=== PATIENT | male | born 1945 | race Hispanic/Latino ===

== ENCOUNTER → 2017-07-25 | Outpatient (CLI) | payer OTHER ==
[~2017-07-25] MED LIST: ATOR40TA71 PO
== END | disposition home or self-care (01) ==
LOC: OIH 15:39
PROVIDERS: ATTEND Family Medicine
DX: M25.561 Pain in right knee (principal); M25.562 Pain in left knee
CPT/HCPCS: 73562

== ENCOUNTER 2017-09-10 07:45 | Emergency (ER) | payer OTHER ==
[2017-09-10 09:07] LABS: APPEARANCE,URINE Cloudy (CLEAR); BILIRUBIN,URINE Negative (NEGATIVE); COLOR,URINE Yellow (YELLOW); GLUCOSE, URINE (UA) Negative (NEGATIVE); KETONES,URINE Negative (NEGATIVE); LEUKOCYTE ESTERASE ,URINE Moderate (NEGATIVE); NITRATE,URINE Positive (NEGATIVE); OCCULT BLOOD,URINE Large (NEGATIVE); PROTEIN,URINE Negative (NEGATIVE); UROBILINOGEN,URINE 0.2 mg/dL (0.2-1.0)
[2017-09-10 09:35] LABS: BACTERIA,URINE Many /HPF (None Seen); RBC,URINE 26-50 /HPF (0-1); SQUAMOUS EPITHELIAL CELL,UR Rare /HPF (0-2); WBC,URINE 51-100 /HPF (0-1)
[2017-09-10] MEDS ORDERED: CEFTRIAXONE SODIUM 1 GM ONE (09:40)
== END 2017-09-10 10:39 | disposition home or self-care (01) ==
LOC: EDH 07:45
DX: N39.0 Urinary tract infection, site not specified (principal); R33.9 Retention of urine, unspecified; Z88.0 Allergy status to penicillin; Z98.890 Other specified postprocedural states
CPT/HCPCS: 51701; 81001; 87088; 87186; 96372; 99284; J0696

== ENCOUNTER 2018-03-23 18:47 | Emergency (ER) | payer MEDICARE, OTHER ==
[2018-03-23 19:18] LABS: BASOPHILS % (AUTO) 0.6 % (0.0-5.0); EOSINOPHILS % (AUTO) 0.5 % (0.0-8.0); HEMATOCRIT 42.8 % (42-54); LYMPHOCYTES % (AUTO) 7.4 % (21.0-51.0); MEAN CORPUSCULAR HEMOGLOBIN 28.4 pg (27.0-33.0); MEAN CORPUSCULAR HGB CONC 33.6 g/dL (32.0-36.0); MEAN CORPUSCULAR VOLUME 84.5 fL (79-99); MONOCYTES % (AUTO) 5.6 % (3.0-13.0); NEUTROPHILS % (AUTO) 85.9 % (40.0-77.0); NUCLEATED RED BLOOD CELLS 0.1 % (0.0-0.19); PLATELET COUNT (AUTO) 227 K/uL (130-400); RED BLOOD CELL COUNT(AUTO) 5.07 MIL/uL (4.50-6.20); RED CELL DISTRIBUTION WIDTH 14.7 % (11.0-15.5); WHITE BLOOD COUNT (AUTO) 20.7 K/uL (4.8-10.8)
[2018-03-23 19:24] LABS: CREATININE 1.1 mg/dL (0.5-1.5); INR 0.92 (0.85-1.15); PARTIAL THROMBOPLASTIN TIME 29.9 SEC (26.3-35.5); POTASSIUM 3.7 mmol/L (3.5-5.1); PROTHROMBIN TIME 9.7 SEC (9.6-11.6)
[2018-03-23 19:34] LABS: ALBUMIN 3.4 g/dL (3.5-5.0); BILIRUBIN,TOTAL 0.7 mg/dL (0.2-1.0); TOTAL PROTEIN, SERUM 7.8 g/dL (6.0-8.3)
[2018-03-23 19:57] LABS: B-TYPE NATRIURETIC PEPTIDE 89 pg/mL (0-100)
[2018-03-23 20:37] LABS: APPEARANCE,URINE Cloudy (CLEAR); BILIRUBIN,URINE Negative (NEGATIVE); COLOR,URINE Yellow (YELLOW); GLUCOSE, URINE (UA) Negative (NEGATIVE); KETONES,URINE Trace mg/dL (NEGATIVE); LEUKOCYTE ESTERASE ,URINE Large (NEGATIVE); NITRATE,URINE Positive (NEGATIVE); OCCULT BLOOD,URINE Small (NEGATIVE); PH,URINE 6.5 (5.0-8.0); PROTEIN,URINE POS 1+ (NEGATIVE)
[2018-03-23 20:43] LABS: BACTERIA,URINE Many /HPF (None Seen); RBC,URINE 0-1 /HPF (0-1); WBC,URINE TNTC /HPF (0-1)
[2018-03-23 20:44] LABS: AMPHET/METH SCREEN,URINE NEGATIVE (NEGATIVE); BARBITURATE SCREEN, URINE NEGATIVE (NEGATIVE); BENZODIAZEPINES SCREEN,URINE NEGATIVE (NEGATIVE); CANNABINOID SCREEN,URINE NEGATIVE (NEGATIVE); COCAINE SCREEN,URINE NEGATIVE (NEGATIVE); OPIATE SCREEN,URINE POSITIVE (NEGATIVE); PHENCYCLIDINE SCREEN,URINE NEGATIVE (NEGATIVE); SQUAMOUS EPITHELIAL CELL,UR 0-2 /HPF (0-2)
[2018-03-23] MEDS ORDERED: LEVOFLOXACIN 500 MG/D5W 100 ML 100 ML ONE (21:09)
[2018-03-23] MEDS ORDERED: SODIUM CHLORIDE 0.9% 1000ML 1,000 ML IV ONE (21:09)
== END 2018-03-23 22:56 | disposition home or self-care (01) ==
LOC: EDH 18:47
DX: R55 Syncope and collapse (principal); N39.0 Urinary tract infection, site not specified; R53.1 Weakness; Z88.0 Allergy status to penicillin; Z87.442 Personal history of urinary calculi; Z90.49 Acquired absence of other specified parts of digestive tract
CPT/HCPCS: 36415; 70450; 71045; 80053; 80305; 81001; 82550; 82948; 83874; 83880; 84484; 85025; 85610; 85730; 87077; 87088; 87186; 93005; 96365; 96366; 99291; J1956; J7030

== ENCOUNTER → 2018-03-27 | Outpatient (CLI) | payer OTHER, MEDICARE | END | disposition home or self-care (01) | LOC: RAH 08:36 | PROVIDERS: ATTEND Orthopaedic Surgery | DX: S83.232A Complex tear of medial meniscus, current injury, left knee, initial encounter (principal); M71.22 Synovial cyst of popliteal space [Baker], left knee; M25.462 Effusion, left knee; X58.XXXA Exposure to other specified factors, initial encounter; Y93.89 Activity, other specified; Y92.89 Other specified places as the place of occurrence of the external cause; Y99.8 Other external cause status | CPT/HCPCS: 73721 ==

== ENCOUNTER 2019-06-08 10:27 | Inpatient (IN) | payer OTHER, MEDICARE ==
[~2019-06-08] VITALS: Ht 167.6 cm; Wt 111.6 kg
[~2019-06-08 10:27] MED LIST changes: +ASPI-1012 PO; -ATOR40TA71 PO; +HYDR-4457 PO; +NITR100C4 PO; +TAMS-1 PO
[2019-06-08] MEDS ORDERED: ONDANSETRON HCL 4 MG/2 ML VIAL ONE (10:47)
[2019-06-08] MEDS ORDERED: SODIUM CHLORIDE 0.9% 1000ML 1,000 ML IV ONE ×2 (10:55→14:01)
[2019-06-08 10:59] LABS: BASOPHILS % (AUTO) 0.4 % (0.0-5.0); EOSINOPHILS % (AUTO) 0.2 % (0.0-8.0); LYMPHOCYTES % (AUTO) 3.5 % (21.0-51.0); MEAN CORPUSCULAR HEMOGLOBIN 26.9 pg (27.0-33.0); MEAN CORPUSCULAR HGB CONC 32.5 g/dL (32.0-36.0); MEAN CORPUSCULAR VOLUME 82.7 fL (79-99); MONOCYTES % (AUTO) 3.2 % (3.0-13.0); NEUTROPHILS % (AUTO) 92.3 % (40.0-77.0); PLATELET COUNT (AUTO) 206 K/uL (130-400); RED BLOOD CELL COUNT(AUTO) 5.32 MIL/uL (4.50-6.20); RED CELL DISTRIBUTION WIDTH 14.6 % (11.0-15.5); WHITE BLOOD COUNT (AUTO) 18.8 K/uL (4.8-10.8)
[2019-06-08] MEDS ORDERED: ACETAMINOPHEN EXTRA STRENGTH 500 MG TABLET ONE (11:01)
[2019-06-08 11:18] LABS: CARBON DIOXIDE 25 mmol/L (21-32); CHLORIDE 103 mmol/L (101-111); CREATININE 1.1 mg/dL (0.5-1.5); GLOMERULAR FILTR. RATE CALC 70 mL/min (>60); GLUCOSE,RANDOM 106 mg/dL (70-105); POTASSIUM 4.6 mmol/L (3.5-5.1); SODIUM SERUM 139 mmol/L (136-145); UREA NITROGEN, BLOOD 19 mg/dL (7-18)
[2019-06-08 11:29] LABS: ALANINE AMINOTRANSFERASE 21 U/L (12-78); ALBUMIN 3.4 g/dL (3.5-5.0); ASPARTATE AMINOTRANSFERASE 26 U/L (10-37); BILIRUBIN,TOTAL 0.7 mg/dL (0.2-1.0); CREATINE KINASE, TOTAL 181 U/L (21-232); MYOGLOBIN 77 ng/mL (10-92); TOTAL PROTEIN, SERUM 7.8 g/dL (6.0-8.3); TROPONIN I < 0.04 ng/mL (0.00-0.06)
[2019-06-08] MEDS: LEVOFLOXACIN 500 MG/D5W 100 ML 100 ML IV SCH (12:00)
[2019-06-08 12:09] LABS: APPEARANCE,URINE Clear (CLEAR); BILIRUBIN,URINE Negative (NEGATIVE); COLOR,URINE Yellow (YELLOW); GLUCOSE, URINE (UA) Negative (NEGATIVE); KETONES,URINE Negative (NEGATIVE); LEUKOCYTE ESTERASE ,URINE Large (NEGATIVE); NITRATE,URINE Positive (NEGATIVE); OCCULT BLOOD,URINE Trace (NEGATIVE); PROTEIN,URINE Negative (NEGATIVE); UROBILINOGEN,URINE 0.2 mg/dL (0.2-1.0)
[2019-06-08 12:22] LABS: INR 0.91 (0.85-1.15); PROTHROMBIN TIME 9.6 SEC (9.6-11.6)
[2019-06-08 12:37] LABS: BACTERIA,URINE Moderate /HPF (None Seen); RBC,URINE 0-1 /HPF (0-1)
[2019-06-08] MEDS ORDERED: LEVOFLOXACIN 500 MG/D5W 100 ML 100 ML ONE (12:40)
[2019-06-08] MEDS: SODIUM CHLORIDE 0.9% 1000ML 1,000 ML IV SCH ×2 (14:00→23:48)
[2019-06-08 14:40] VITALS: BP 161/75
[2019-06-08] MEDS ORDERED: NITROGLYCERIN 0.4 MG SL TAB SL PRN (15:15)
[2019-06-08] MEDS ORDERED: ACETAMINOPHEN 325 MG TAB PO PRN ×2 (15:15)
[2019-06-08] MEDS ORDERED: LACTULOSE 20 GM/30 ML UDCUP PO PRN (15:15)
[2019-06-08] MEDS ORDERED: ACETAMINOPHEN-CODEINE 300/30MG TAB PO PRN (15:15)
[2019-06-08] MEDS ORDERED: HYDRALAZINE HCL 20 MG/ML VIAL IV PRN (15:15)
[2019-06-08] MEDS ORDERED: GLUCAGON 1MG KIT 1 MG ML IM PRN (15:15)
[2019-06-08] MEDS ORDERED: POTASSIUM CHLORIDE 20 MEQ ERTAB PO PRN (15:15)
[2019-06-08] MEDS ORDERED: DiphenhydrAMINE HCL 50 MG/ML VIAL IV PRN (15:15)
[2019-06-08] MEDS ORDERED: ONDANSETRON HCL 4 MG/2 ML VIAL IV PRN (15:15)
[2019-06-08] MEDS ORDERED: POTASSIUM CHLORIDE 20MEQ/100ML 100 ML IV PRN (15:15)
[2019-06-08] MEDS ORDERED: POTASSIUM CHLORIDE 10% ELIXIR 20 MEQ/15 ML UDCUP PO PRN (15:15)
[2019-06-08] MEDS ORDERED: DEXTROSE 50%-WATER 50 ML DISP.SYRIN IV PRN (15:15)
[2019-06-08] MEDS ORDERED: DIPHENHYDRAMINE HCL 25 MG CAPSULE PO PRN (15:15)
[2019-06-08] MEDS ORDERED: LIDOCAINE HCL-MPF 1% 2ML VIAL IV PRN (15:15)
[2019-06-08] MEDS ORDERED: HYDROMORPHONE 1 MG/1 ML AMP IV PRN (15:15)
[2019-06-08 16:00] VITALS: BP 124/48
[2019-06-08] MEDS ORDERED: INSULIN HUMULIN R 100 UNIT/ML 3ML SQ SCH (16:30)
[2019-06-08] MEDS: FAMOTIDINE/PF 20 MG/2 ML VIAL IV SCH (20:07)
--- NOTE | 2019-06-08 20:07 | NUR ---
MEDS SHIFT ASSESSMENT DONE, PLEASE REFER TO CHART. DUE MEDS ADMINISTERED, TOLERATED WELL. KEPT RESTED AND COMFORTABLE IN BED. CALL LIGHT WITHIN REACH. WILL MONITOR PT. SPOUSE AT BEDSIDE IN ATTENDANCE TO NEEDS AT THIS TIME. Addendum: 06/08/19 at 2258 by JENNY DELVALLE RN RN Amended: Links added.
[2019-06-08 20:12] VITALS: BP 109/59
--- NOTE | 2019-06-08 22:30 | NUR ---
PAIN PT COMPLAINTS OF PAINS ON HIS RT ARM AND RT SHOULDER. MEDICATED WITH TYLENOL #3 1 TAB. WARP PACKS APPLIED TO RT SHOULDER. KEPT RESTED AND COMFORTABLE. CALL LIGHT WITHIN REACH. WILL RE-ASSESS PT.
[2019-06-09] VITALS (7 sets, daily range): BP systolic 99–129; BP diastolic 52–65
--- NOTE | 2019-06-09 02:00 | NUR ---
ROUNDS PT RESTING WELL, FAIRLY ASLEEP WITH RESPIRATIONS EVEN AND UNLABORED. NO DISTRESS NOTED. KEPT UNDISTURBED FOR NOW. WILL MONITOR PT. CALL LIGHT WITHIN REACH. SPOUSE ASLEEP AT BEDSIDE.
[2019-06-09] MEDS: SODIUM CHLORIDE 0.9% 1000ML 1,000 ML IV SCH ×3 (03:04→20:00)
--- NOTE | 2019-06-09 04:10 | NUR ---
ASSIST PT TRIED TO HAVE A BM IN THE RESTROOM BUT NO RESULTS. PT WAS FEELING DIZZY GOING BACK TO BED. ASSISTED TO SIT IN THE CHAIR. REQUESTED TO STAY IN THE CHAIR FOR NOW. NOTED TO HAVE SOB WITH EXERTION. PLACED BACK ON O2 AT 2LPM. PCP ON THE WAY TO MONITOR V/S. WILL MONITOR CLOSELY.
[2019-06-09 04:47] LABS: BASOPHILS % (AUTO) 0.3 % (0.0-5.0); EOSINOPHILS % (AUTO) 0.1 % (0.0-8.0); HEMATOCRIT 39.1 % (42-54); MEAN CORPUSCULAR HEMOGLOBIN 26.5 pg (27.0-33.0); MEAN CORPUSCULAR HGB CONC 31.5 g/dL (32.0-36.0); MEAN CORPUSCULAR VOLUME 84.1 fL (79-99); MONOCYTES % (AUTO) 5.9 % (3.0-13.0); NEUTROPHILS % (AUTO) 89.2 % (40.0-77.0); PLATELET COUNT (AUTO) 178 K/uL (130-400); RED BLOOD CELL COUNT(AUTO) 4.65 MIL/uL (4.50-6.20); RED CELL DISTRIBUTION WIDTH 14.7 % (11.0-15.5)
[2019-06-09 04:57] LABS: CREATININE 1.1 mg/dL (0.5-1.5); POTASSIUM 3.6 mmol/L (3.5-5.1)
--- NOTE | 2019-06-09 06:10 | NUR ---
ROUNDS PT ALREADY BACK IN BED, FAIRLY ASLEEP. NO DISTRESS NOTED. KEPT RESTED AND COMFORTABLE. FOR MORE CARE AND MANAGEMENT.
[2019-06-09] MEDS ORDERED: PNEUMOCOCCAL VACCINE POLYVALENT 0.5 ML/VIAL [PPV] IM SCH (09:00)
[2019-06-09] MEDS: FAMOTIDINE/PF 20 MG/2 ML VIAL IV SCH ×2 (09:06→20:42)
[2019-06-09] MEDS: TAMSULOSIN HCL 0.4 MG CAP.ER.24H PO SCH (09:06)
[2019-06-09] MEDS: ENOXAPARIN SODIUM 40 MG/0.4 ML SYRINGE SQ SCH (09:07)
--- NOTE | 2019-06-09 09:20 | NUR ---
ROCKET ENGINE COMPONENT MECHANIC WHITE AWARE OF WBC OF 22 STATES WILL ADD ANTIBIOTIC.
[2019-06-09] MEDS: LEVOFLOXACIN 500 MG/D5W 100 ML 100 ML IV SCH (12:51)
--- NOTE | 2019-06-09 16:46 | NUR ---
1540 had pt sign IM Letter,faxed to [phone] and placed in chart under consent tab
--- NOTE | 2019-06-09 17:07 | NUR ---
cm note met with patient and states resides at home with spouse and daughter, spouse assists as needed. pt independent with ambulation and adls. no provider, no services. has a walker, but does not ever use. pt drives. dc plan is back home , no dc needs. Addendum: 06/09/19 at 1709 by STERLING DUPONT CM Amended: Links added.
[2019-06-09] MEDS: SULFAMETHOX-TMP DS 800/160 TAB PO SCH (20:42)
--- NOTE | 2019-06-09 20:45 | NUR ---
MEDS SHIFT ASSESSMENT DONE, PLEASE REFER TO CHART. DUE MEDS ADMINISTERED, TOLERATED WELL. KEPT RESTED AND COMFORTABLE. CALL LIGHT WITHIN REACH. FAMILY AT BEDSIDE. WILL MONITOR PT. Addendum: 06/09/19 at 2344 by JENNY DELVALLE RN RN Amended: Links added.
--- NOTE | 2019-06-10 02:00 | NUR ---
ROUNDS PT RESTING WELL, FAIRLY ASLEEP WITH RESPIRATIONS EVEN AND UNLABORED. NO NOTED DISTRESS. KEPT UNDISTURBED FOR NOW WILL MONITOR PT.
[2019-06-10 03:26] VITALS: BP 130/79
[2019-06-10 04:40] LABS: BASOPHILS % (AUTO) 0.2 % (0.0-5.0); EOSINOPHILS % (AUTO) 0.2 % (0.0-8.0); HEMATOCRIT 37.8 % (42-54); LYMPHOCYTES % (AUTO) 4.9 % (21.0-51.0); MEAN CORPUSCULAR HEMOGLOBIN 26.8 pg (27.0-33.0); MEAN CORPUSCULAR VOLUME 83.8 fL (79-99); MONOCYTES % (AUTO) 5.4 % (3.0-13.0); NEUTROPHILS % (AUTO) 88.9 % (40.0-77.0); PLATELET COUNT (AUTO) 164 K/uL (130-400); RED BLOOD CELL COUNT(AUTO) 4.51 MIL/uL (4.50-6.20); RED CELL DISTRIBUTION WIDTH 14.6 % (11.0-15.5); WHITE BLOOD COUNT (AUTO) 12.1 K/uL (4.8-10.8)
[2019-06-10 05:11] LABS: POTASSIUM 3.8 mmol/L (3.5-5.1)
[2019-06-10] MEDS: SODIUM CHLORIDE 0.9% 1000ML 1,000 ML IV SCH ×2 (05:17→15:17)
[2019-06-10 08:00] VITALS: BP 111/63
[2019-06-10] MEDS: FAMOTIDINE/PF 20 MG/2 ML VIAL IV SCH (10:01)
[2019-06-10] MEDS: TAMSULOSIN HCL 0.4 MG CAP.ER.24H PO SCH (10:01)
[2019-06-10] MEDS: SULFAMETHOX-TMP DS 800/160 TAB PO SCH (10:02)
[2019-06-10] MEDS: ENOXAPARIN SODIUM 40 MG/0.4 ML SYRINGE SQ SCH (10:02)
[2019-06-10] MEDS: LEVOFLOXACIN 500 MG/D5W 100 ML 100 ML IV SCH (10:02)
[2019-06-10 11:00] VITALS: BP 122/65
[2019-06-10 16:00] VITALS: BP 118/76
[2019-06-10 19:11] VITALS: BP 130/68
--- NOTE | 2019-06-10 20:00 | NUR ---
ASSESS SHIFT ASSESSMENT DONE, PLEASE REFER TO CHART. PT AND FAMILY MADE AWARE OF D/C ORDERS. EXPLAINED THAT D/C MEDS ARE STILL TO BE CLARIFIED WITH MD. PT'S FAMILY CALLED BY PT'S FOR TRANSPORT. Addendum: 06/11/19 at 0114 by JENNY DELVALLE RN RN Amended: Links added.
--- NOTE | 2019-06-10 20:07 | NUR ---
CALL RESOURCE NURSE MADE AWARE OF D/C ORDERS FROM [facility]ODOL[facility] WOR[facility]Y WITHOUT ANY PRESCRIPTIONS FOR ANTIBIOTIC GIVEN. INFORMED OF URINE CX RESULTS WHICH AM SHIFT NURSE WAS ABLE TO RELAY TO ION EXCHANGE OPERATOR DURING THE PM PER REPORT. RESOURCE NURSE STATED TO CALL ION EXCHANGE OPERATOR AND CLARIFY MED ORDERS. SECURED CELL PHONE NUMBER OF ION EXCHANGE OPERATOR AND CALLED TWICE BUT VOICE MAIL IS FULL AND ION EXCHANGE OPERATOR IS NOT ANSWERING HER PHONE. PAGED ION EXCHANGE OPERATOR [employer] FOR THE NIGHT, MR SCHWARTZ, VIA ANSWERING SERVICE, AWAITING CALL BACK.
--- NOTE | 2019-06-10 20:15 | NUR ---
RESOURCE RESOURCE NURSE MADE AWARE THAT BUTTON TUFTER BECKY IS NOT ANSWERING HER PHONE AND BUTTON TUFTER LANA HAS NOT ANSWERED THE PAGE YET. RESOURCE NURSE INSTRUCTED OPEN CLAIMS REPRESENTATIVE TO CALL TERMINAL GAUGER SUPERVISOR DIRECTOR TO LET HER KNOW OS SITUATION. CHARITO STONE DIRECTOR CALLED AND MADE MULLINS OF BUTTON TUFTER SITUATION AT THIS TIME. STATED TO CALL DR VILLAFUERTE FOR PT ORDERS AND IF NO ANSWER TO GET RESOURCE NURSE TO ESCALATE SITUATION TO ADMINISTRATIVE SOLAR SALES MANAGER.
--- NOTE | 2019-06-10 20:35 | NUR ---
RE-PAGED TRIED TO [facility] MEDICAL LAB DIRECTOR SCHWARTZ AGAIN VIA ANSWERING SERVICE. MEDICAL LAB DIRECTOR CALLED BACK REFERRED PT SITUATION AND NEW ORDERS GIVEN. PT MADE AWARE OF D/C ORDERS. D/C PAPERS PREPARED AND CALLED IN NEW PRESCRIPTION TO PT'S PHARMACY IN [facility].
[2019-06-10] MEDS ORDERED: NITR100C4 PO ×2 (21:02→21:06)
--- NOTE | 2019-06-10 21:30 | NUR ---
D/C PT'S FAMILY IN TO TAKE PT HOME. D/C PIV WITH CATHETER INTACT. TELE MONITOR DISCONTINUED. DISCHARGE PAPERS AND D/C INSTRUCTIONS GIVEN TO PT AND FAMILY. PT AND PT'S SPOUSE VERBALIZES UNDERSTANDING. D/C PT IN STABLE CONDITION. PCP ASKED TO WHEELED PT DOWN.
== END 2019-06-10 21:35 | disposition home or self-care (01) | DRG 872 ==
LOC: EDH 10:27 → OBSVTOIN 13:00 → EDHIP 13:00 → 4DH 15:08
PROVIDERS: ADMIT Internal Medicine; ATTEND Internal Medicine
PROC: 3E0234Z Introduction of Serum, Toxoid and Vaccine into Muscle, Percutaneous Approach (ICD-10-PCS; principal; 2019-06-09)
DX: A41.9 Sepsis, unspecified organism (principal); N10 Acute pyelonephritis; E44.0 Moderate protein-calorie malnutrition; E66.9 Obesity, unspecified; E11.9 Type 2 diabetes mellitus without complications; E78.5 Hyperlipidemia, unspecified; I10 Essential (primary) hypertension; N28.1 Cyst of kidney, acquired; Z68.39 Body mass index [BMI] 39.0-39.9, adult; Z88.0 Allergy status to penicillin; Z87.440 Personal history of urinary (tract) infections; Z23 Encounter for immunization
CPT/HCPCS: 36415; 71045; 76770; 80048; 80053; 81001; 82550; 83605; 83874; 84145; 84484; 85025; 85610; 85730; 87040; 87077; 87088; 87186; 87804; 90732; 93005; 99291; G0378; J1650; J1956; J2405; J3490; J7030

== ENCOUNTER 2019-07-22 22:00 | Emergency (ER) | payer MEDICARE, OTHER ==
[~2019-07-22 22:00] MED LIST changes: -ASPI-1012 PO; -HYDR-4457 PO
[2019-07-22 23:12] LABS: BASOPHILS % (AUTO) 0.3 % (0.0-5.0); HEMATOCRIT 43.1 % (42-54); LYMPHOCYTES % (AUTO) 2.9 % (21.0-51.0); MEAN CORPUSCULAR HEMOGLOBIN 27.4 pg (27.0-33.0); MEAN CORPUSCULAR HGB CONC 32.9 g/dL (32.0-36.0); MONOCYTES % (AUTO) 6.4 % (3.0-13.0); NEUTROPHILS % (AUTO) 89.8 % (40.0-77.0); PLATELET COUNT (AUTO) 208 K/uL (130-400); RED BLOOD CELL COUNT(AUTO) 5.19 MIL/uL (4.50-6.20); RED CELL DISTRIBUTION WIDTH 14.6 % (11.0-15.5); WHITE BLOOD COUNT (AUTO) 19.8 K/uL (4.8-10.8)
[2019-07-22 23:19] LABS: CREATININE 1.1 mg/dL (0.5-1.5); POTASSIUM 3.5 mmol/L (3.5-5.1)
[2019-07-22 23:21] LABS: APPEARANCE,URINE Cloudy (CLEAR); BILIRUBIN,URINE Negative (NEGATIVE); COLOR,URINE Yellow (YELLOW); GLUCOSE, URINE (UA) Negative (NEGATIVE); KETONES,URINE Trace mg/dL (NEGATIVE); LEUKOCYTE ESTERASE ,URINE Large (NEGATIVE); NITRATE,URINE Positive (NEGATIVE); OCCULT BLOOD,URINE Trace (NEGATIVE); PH,URINE 7.5 (5.0-8.0); PROTEIN,URINE POS 1+ mg/dL (NEGATIVE)
[2019-07-22] MEDS ORDERED: LEVOFLOXACIN 750 MG/D5W 150 ML 150 ML ONE (23:44)
[2019-07-22 23:52] LABS: BACTERIA,URINE Moderate /HPF (None Seen); MUCUS,URINE Few LPF (None Seen); SQUAMOUS EPITHELIAL CELL,UR Few /HPF (0-2); WBC,URINE 26-50 /HPF (0-1)
== END 2019-07-23 01:37 | disposition home or self-care (01) ==
LOC: EDH 22:00
DX: N13.6 Pyonephrosis (principal); Z90.49 Acquired absence of other specified parts of digestive tract; Z88.0 Allergy status to penicillin
CPT/HCPCS: 36415; 74176; 80048; 81001; 83605; 85025; 87040; 87077; 87088; 87186; 96365; 96366; 99284; J1956

== ENCOUNTER 2019-08-01 15:18 | Emergency (ER) | payer OTHER ==
[2019-08-01] MEDS ORDERED: KETOROLAC TROMETHAMINE 30MG/ML ONE (15:57)
[2019-08-01 16:05] LABS: APPEARANCE,URINE Cloudy (CLEAR); BILIRUBIN,URINE Negative (NEGATIVE); COLOR,URINE Yellow (YELLOW); GLUCOSE, URINE (UA) Negative (NEGATIVE); KETONES,URINE Negative (NEGATIVE); LEUKOCYTE ESTERASE ,URINE Moderate (NEGATIVE); NITRATE,URINE Positive (NEGATIVE); OCCULT BLOOD,URINE Trace (NEGATIVE); PH,URINE 5.5 (5.0-8.0); PROTEIN,URINE Negative (NEGATIVE); UROBILINOGEN,URINE 0.2 mg/dL (0.2-1.0)
[2019-08-01 16:15] LABS: BASOPHILS % (AUTO) 0.4 % (0.0-5.0); EOSINOPHILS % (AUTO) 0.1 % (0.0-8.0); HEMATOCRIT 43.5 % (42-54); LYMPHOCYTES % (AUTO) 5.6 % (21.0-51.0); MEAN CORPUSCULAR HEMOGLOBIN 26.9 pg (27.0-33.0); MEAN CORPUSCULAR HGB CONC 32.4 g/dL (32.0-36.0); MEAN CORPUSCULAR VOLUME 82.9 fL (79-99); MONOCYTES % (AUTO) 4.9 % (3.0-13.0); NEUTROPHILS % (AUTO) 88.5 % (40.0-77.0); PLATELET COUNT (AUTO) 310 K/uL (130-400); RED BLOOD CELL COUNT(AUTO) 5.25 MIL/uL (4.50-6.20); RED CELL DISTRIBUTION WIDTH 14.2 % (11.0-15.5); WHITE BLOOD COUNT (AUTO) 18.7 K/uL (4.8-10.8)
[2019-08-01 16:20] LABS: BACTERIA,URINE Moderate /HPF (None Seen)
[2019-08-01 16:21] LABS: MUCUS,URINE Rare LPF (None Seen); SQUAMOUS EPITHELIAL CELL,UR Few /HPF (0-2)
[2019-08-01 16:29] LABS: CREATININE 1.1 mg/dL (0.5-1.5); POTASSIUM 4.1 mmol/L (3.5-5.1)
[2019-08-01 16:34] LABS: ALBUMIN 3.4 g/dL (3.5-5.0); BILIRUBIN,TOTAL 0.7 mg/dL (0.2-1.0); TOTAL PROTEIN, SERUM 8.4 g/dL (6.0-8.3)
[2019-08-01] MEDS ORDERED: LEVOFLOXACIN 500 MG TABLET ONE (17:19)
== END 2019-08-01 19:09 | disposition home or self-care (01) ==
LOC: EDH 15:18
DX: N39.0 Urinary tract infection, site not specified (principal); N45.2 Orchitis; Z88.0 Allergy status to penicillin; Z90.49 Acquired absence of other specified parts of digestive tract
CPT/HCPCS: 36415; 74176; 76870; 80053; 81001; 85025; 96374; 99285; J1885

== ENCOUNTER 2020-04-08 06:24 | Emergency (ER) | payer OTHER ==
[2020-04-08 07:14] LABS: BASOPHILS % (AUTO) 0.4 % (0.0-5.0); EOSINOPHILS % (AUTO) 0.2 % (0.0-8.0); HEMATOCRIT 43.6 % (42-54); LYMPHOCYTES % (AUTO) 5.2 % (21.0-51.0); MEAN CORPUSCULAR HEMOGLOBIN 27.6 pg (27.0-33.0); MEAN CORPUSCULAR VOLUME 83.5 fL (79-99); MONOCYTES % (AUTO) 3.6 % (3.0-13.0); NEUTROPHILS % (AUTO) 90.2 % (40.0-77.0); PLATELET COUNT (AUTO) 231 K/uL (130-400); RED BLOOD CELL COUNT(AUTO) 5.22 MIL/uL (4.50-6.20); RED CELL DISTRIBUTION WIDTH 14.3 % (11.0-15.5); WHITE BLOOD COUNT (AUTO) 13.2 K/uL (4.8-10.8)
[2020-04-08 07:30] LABS: ALBUMIN 3.6 g/dL (3.5-5.0); BILIRUBIN,TOTAL 0.7 mg/dL (0.2-1.0); CREATININE 1.1 mg/dL (0.5-1.5); POTASSIUM 4.3 mmol/L (3.5-5.1); TOTAL PROTEIN, SERUM 7.9 g/dL (6.0-8.3)
[2020-04-08] MEDS ORDERED: TAMSULOSIN HCL 0.4 MG CAP.ER.24H ONE (09:01)
[2020-04-08 09:20] LABS: APPEARANCE,URINE TURBID (CLEAR); BILIRUBIN,URINE NEGATIVE (NEGATIVE); COLOR,URINE YELLOW (YELLOW); GLUCOSE, URINE (UA) NEGATIVE (NEGATIVE); KETONES,URINE NEGATIVE (NEGATIVE); LEUKOCYTE ESTERASE ,URINE LARGE (NEGATIVE); NITRATE,URINE NEGATIVE (NEGATIVE); OCCULT BLOOD,URINE SMALL (NEGATIVE); PH,URINE 7.5 (5.0-8.0); PROTEIN,URINE 30 mg/dL (NEGATIVE); UROBILINOGEN,URINE 0.2 mg/dL (0.2-1.0)
[2020-04-08 09:38] LABS: BACTERIA,URINE Many /HPF (None Seen); SQUAMOUS EPITHELIAL CELL,UR Rare /HPF (0-2); WBC,URINE 51-100 /HPF (0-1)
[2020-04-08] MEDS ORDERED: LEVOFLOXACIN 500 MG TABLET ONE (10:00)
== END 2020-04-08 11:35 | disposition home or self-care (01) ==
LOC: EDH 06:24
DX: N39.0 Urinary tract infection, site not specified (principal); N40.0 Benign prostatic hyperplasia without lower urinary tract symptoms; E66.01 Morbid (severe) obesity due to excess calories; N40.1 Benign prostatic hyperplasia with lower urinary tract symptoms; Z88.0 Allergy status to penicillin; Z90.49 Acquired absence of other specified parts of digestive tract; Z79.899 Other long term (current) drug therapy
CPT/HCPCS: 36415; 80053; 81001; 83690; 85025; 87077; 87088; 87186

== ENCOUNTER 2020-10-28 16:20 | Emergency (ER) | payer OTHER ==
[~2020-10-28] VITALS: Ht 167.6 cm; Wt 108.9 kg
[2020-10-28 16:28] VITALS: BP 128/66
[2020-10-28] MEDS ORDERED: LIDOCAINE HCL 2% JELLY 5 ML ONE (16:39)
[2020-10-28 17:40] LABS: BASOPHILS % (AUTO) 0.7 % (0.0-5.0); EOSINOPHILS % (AUTO) 0.9 % (0.0-8.0); HEMATOCRIT 42.1 % (42-54); LYMPHOCYTES % (AUTO) 8.4 % (21.0-51.0); MEAN CORPUSCULAR HEMOGLOBIN 26.7 pg (27.0-33.0); MEAN CORPUSCULAR HGB CONC 31.8 g/dL (32.0-36.0); NEUTROPHILS % (AUTO) 83.7 % (40.0-77.0); PLATELET COUNT (AUTO) 306 K/uL (130-400); RED BLOOD CELL COUNT(AUTO) 5.01 MIL/uL (4.50-6.20); RED CELL DISTRIBUTION WIDTH 14.5 % (11.0-15.5)
[2020-10-28 17:49] LABS: POTASSIUM 3.9 mmol/L (3.5-5.1)
[2020-10-28 17:54] LABS: ALBUMIN 3.3 g/dL (3.5-5.0); BILIRUBIN,TOTAL 0.4 mg/dL (0.2-1.0); TOTAL PROTEIN, SERUM 7.9 g/dL (6.0-8.3)
[2020-10-28] MEDS ORDERED: TAMSULOSIN HCL 0.4 MG CAP.ER.24H ONE (18:56)
[2020-10-28] MEDS ORDERED: TAMS-1 PO (18:58)
[2020-10-28] MEDS ORDERED: TAMSULOSIN HCL 0.4 MG CAP.ER.24H PO SCH (19:00)
[2020-10-28 19:21] VITALS: BP 136/79
[2020-10-28 19:50] LABS: APPEARANCE,URINE Cloudy (CLEAR); BILIRUBIN,URINE Negative (NEGATIVE); COLOR,URINE Dark Yellow (YELLOW); GLUCOSE, URINE (UA) Negative (NEGATIVE); KETONES,URINE Negative (NEGATIVE); LEUKOCYTE ESTERASE ,URINE Large (NEGATIVE); NITRATE,URINE Positive (NEGATIVE); OCCULT BLOOD,URINE Small (NEGATIVE); PROTEIN,URINE Trace mg/dL (NEGATIVE)
[2020-10-28 20:12] LABS: BACTERIA,URINE Many /HPF (None Seen); RBC,URINE None Seen /HPF (0-1); SQUAMOUS EPITHELIAL CELL,UR 0-2 /HPF (0-2); WBC,URINE >100 /HPF (0-1)
== END 2020-10-28 19:39 | disposition home or self-care (01) ==
LOC: EDH 16:20
DX: N40.0 Benign prostatic hyperplasia without lower urinary tract symptoms (principal); N39.0 Urinary tract infection, site not specified; Z88.0 Allergy status to penicillin; Z79.899 Other long term (current) drug therapy
CPT/HCPCS: 36415; 80053; 81001; 85025; 87077; 87088; 87186

== ENCOUNTER 2020-11-01 14:44 | Observation (INO) | payer OTHER ==
[~2020-11-01] VITALS: Ht 172.7 cm; Wt 108.9 kg
[2020-11-01] VITALS (14 sets, daily range): BP systolic 98–134; BP diastolic 46–77
[2020-11-01 15:37] LABS: APPEARANCE,URINE CLOUDY (CLEAR); BILIRUBIN,URINE NEGATIVE (NEGATIVE); COLOR,URINE YELLOW (YELLOW); GLUCOSE, URINE (UA) NEGATIVE (NEGATIVE); KETONES,URINE NEGATIVE (NEGATIVE); LEUKOCYTE ESTERASE ,URINE LARGE (NEGATIVE); NITRATE,URINE POSITIVE (NEGATIVE); OCCULT BLOOD,URINE SMALL (NEGATIVE); PH,URINE 5.5 (5.0-8.0); PROTEIN,URINE TRACE mg/dL (NEGATIVE); UROBILINOGEN,URINE 0.2 mg/dL (0.2-1.0)
[2020-11-01 15:43] LABS: BACTERIA,URINE Moderate /HPF (None Seen); SQUAMOUS EPITHELIAL CELL,UR Few /HPF (0-2)
[2020-11-01 15:44] LABS: WBC,URINE 51-100 /HPF (0-1)
[2020-11-01 16:32] LABS: BASOPHILS % (AUTO) 0.6 % (0.0-5.0); HEMATOCRIT 42.7 % (42-54); MEAN CORPUSCULAR HEMOGLOBIN 27.5 pg (27.0-33.0); MEAN CORPUSCULAR HGB CONC 32.8 g/dL (32.0-36.0); MEAN CORPUSCULAR VOLUME 83.7 fL (79-99); MONOCYTES % (AUTO) 4.9 % (3.0-13.0); NEUTROPHILS % (AUTO) 83.2 % (40.0-77.0); PLATELET COUNT (AUTO) 285 K/uL (130-400); RED CELL DISTRIBUTION WIDTH 14.1 % (11.0-15.5); WHITE BLOOD COUNT (AUTO) 13.5 K/uL (4.8-10.8)
[2020-11-01 16:41] LABS: CREATININE 1.1 mg/dL (0.5-1.5)
[2020-11-01 16:48] LABS: ALBUMIN 3.5 g/dL (3.5-5.0); BILIRUBIN,TOTAL 0.4 mg/dL (0.2-1.0); CRP QUANTITATIVE 22.4 mg/L (0.00-9.0); TOTAL PROTEIN, SERUM 8.2 g/dL (6.0-8.3)
[2020-11-01] MEDS ORDERED: HYDROCODONE/ACETAMINOPHEN 10/325 MG TAB PO SCH (17:00)
[2020-11-01] MEDS ORDERED: SODIUM CHLORIDE 0.9% 100 ML ONE (17:13)
[2020-11-01] MEDS: CEFTRIAXONE SODIUM 1 GM IVP SCH ×2 (17:48→18:53)
[2020-11-01] MEDS ORDERED: HYDRALAZINE HCL 20 MG/ML VIAL IV PRN (18:15)
[2020-11-01] MEDS ORDERED: GUAIFENESIN-DM 200/20 MG 10 ML PO PRN (18:15)
[2020-11-01] MEDS ORDERED: LACTULOSE 20 GM/30 ML UDCUP PO PRN (18:15)
[2020-11-01] MEDS ORDERED: ACETAMINOPHEN 325 MG TAB PO PRN ×2 (18:15)
[2020-11-01] MEDS ORDERED: MORPHINE 2 MG SYG (2MG/1ML) IV PRN (18:15)
[2020-11-01] MEDS ORDERED: MAG HYDROX/AL HYDROX/SIMETH ES 30 ML SUSP UDCUP PO PRN (18:15)
[2020-11-01] MEDS ORDERED: ONDANSETRON HCL 4 MG/2 ML VIAL IV PRN (18:15)
[2020-11-01] MEDS ORDERED: PROPOFOL 10 MG/ML 20ML VIAL IV ONE ×2 (21:04→22:48)
[2020-11-01] MEDS ORDERED: DEXAMETHASONE SOD PHOSPHATE 10MG/ML 1ML VIAL ONE (21:04)
[2020-11-01] MEDS ORDERED: FENTANYL CITRATE PF 50 MCG/1 ML 2ML VIAL ONE (21:04)
[2020-11-01] MEDS ORDERED: SUCCINYLCHOLINE 200MG/10ML SYR ONE (21:04)
[2020-11-01] MEDS ORDERED: GLYCOPYRROLATE 1 MG/5 ML SYRINGE ONE (21:04)
[2020-11-01] MEDS ORDERED: ROCURONIUM 10MG/1ML SYR 10 MG/ML ML ONE (21:04)
[2020-11-01] MEDS ORDERED: NEOSTIGMINE 5MG/5ML SYR IV ONE (21:04)
[2020-11-01] MEDS ORDERED: MIDAZOLAM HCL 1 MG/ML 2ML VIAL ONE (21:04)
[2020-11-01] MEDS ORDERED: LIDOCAINE PF 100MG/5ML (2%) SYRINGE 5ML ONE (21:04)
[2020-11-01] MEDS ORDERED: ONDANSETRON HCL 4 MG/2 ML VIAL ONE (21:04)
[2020-11-01] MEDS ORDERED: SODIUM CHLORIDE 0.9% 1000ML 1,000 ML IV ONE (21:41)
[2020-11-01] MEDS ORDERED: EPHEDRINE SULFATE 50 MG/ML AMPULE ONE (22:35)
[2020-11-02] VITALS (12 sets, daily range): BP systolic 102–125; BP diastolic 45–72
[2020-11-02 05:16] LABS: BASOPHILS % (AUTO) 0.2 % (0.0-5.0); HEMATOCRIT 41.1 % (42-54); LYMPHOCYTES % (AUTO) 4.8 % (21.0-51.0); MEAN CORPUSCULAR HEMOGLOBIN 26.5 pg (27.0-33.0); MEAN CORPUSCULAR HGB CONC 31.6 g/dL (32.0-36.0); MEAN CORPUSCULAR VOLUME 83.9 fL (79-99); MONOCYTES % (AUTO) 0.7 % (3.0-13.0); NEUTROPHILS % (AUTO) 93.9 % (40.0-77.0); PLATELET COUNT (AUTO) 258 K/uL (130-400); WHITE BLOOD COUNT (AUTO) 9.2 K/uL (4.8-10.8)
[2020-11-02] MEDS ORDERED: TAMSULOSIN HCL 0.4 MG CAP.ER.24H PO SCH (09:00)
[2020-11-02] MEDS: CEFTRIAXONE SODIUM 1 GM IVP SCH (16:59)
== END 2020-11-02 18:00 | disposition home or self-care (01) ==
LOC: EDH 14:44 → EDHIP 18:02 → 3DH 20:34
PROVIDERS: ADMIT Internal Medicine Critical Care Medicine; ATTEND Internal Medicine Critical Care Medicine
DX: N35.912 Unspecified bulbous urethral stricture, male (principal); N40.1 Benign prostatic hyperplasia with lower urinary tract symptoms; R33.9 Retention of urine, unspecified; E78.2 Mixed hyperlipidemia; E66.9 Obesity, unspecified; Z87.442 Personal history of urinary calculi; Z90.49 Acquired absence of other specified parts of digestive tract; Z79.899 Other long term (current) drug therapy; Z68.36 Body mass index [BMI] 36.0-36.9, adult
CPT/HCPCS: 36415 ×2; 52276; 80053; 81001; 82948; 85025 ×2; 86140; 96361; 96374; 96376; 99284; A4354; A4358; C1758; C1769; G0378 ×22; J0330; J0696 ×2; J1100; J2001; J2250; J2405; J2704 ×2; J2710; J3010; J3490 ×2; J7030; J7120

== ENCOUNTER 2021-01-11 11:37 | Observation (INO) | payer OTHER ==
[~2021-01-11] VITALS: Ht 167.6 cm; Wt 110.7 kg
[~2021-01-11 11:37] MED LIST changes: -NITR100C4 PO
[2021-01-11 11:41] VITALS: BP 151/80
[2021-01-11 12:15] LABS: BASOPHILS % (AUTO) 0.3 % (0.0-5.0); HEMATOCRIT 44.3 % (42-54); LYMPHOCYTES % (AUTO) 4.4 % (21.0-51.0); MEAN CORPUSCULAR HEMOGLOBIN 27.3 pg (27.0-33.0); MEAN CORPUSCULAR HGB CONC 32.5 g/dL (32.0-36.0); MEAN CORPUSCULAR VOLUME 84.1 fL (79-99); NEUTROPHILS % (AUTO) 88.9 % (40.0-77.0); PLATELET COUNT (AUTO) 211 K/uL (130-400); RED BLOOD CELL COUNT(AUTO) 5.27 MIL/uL (4.50-6.20); RED CELL DISTRIBUTION WIDTH 14.7 % (11.0-15.5); WHITE BLOOD COUNT (AUTO) 20.3 K/uL (4.8-10.8)
[2021-01-11 12:23] LABS: CREATININE 1.1 mg/dL (0.5-1.5); POTASSIUM 3.8 mmol/L (3.5-5.1)
[2021-01-11 12:28] LABS: ALBUMIN 3.5 g/dL (3.5-5.0); BILIRUBIN,TOTAL 1.1 mg/dL (0.2-1.0)
[2021-01-11] MEDS ORDERED: ZOSYN 3.375GM+NS 50ML 50 ML IV STA (15:13)
[2021-01-11 15:21] LABS: APPEARANCE,URINE CLOUDY (CLEAR); BILIRUBIN,URINE NEGATIVE (NEGATIVE); COLOR,URINE YELLOW (YELLOW); GLUCOSE, URINE (UA) NEGATIVE (NEGATIVE); KETONES,URINE NEGATIVE (NEGATIVE); LEUKOCYTE ESTERASE ,URINE MODERATE (NEGATIVE); NITRATE,URINE POSITIVE (NEGATIVE); OCCULT BLOOD,URINE SMALL (NEGATIVE); PH,URINE 6.5 (5.0-8.0); PROTEIN,URINE TRACE mg/dL (NEGATIVE); UROBILINOGEN,URINE 0.2 mg/dL (0.2-1.0)
[2021-01-11] MEDS ORDERED: [UNRECOGNIZED DRUG - REMARK] MISC STA (15:23)
[2021-01-11] MEDS ORDERED: 0.9%NACL 1000ML 1,000 ML IV ONE (15:30)
[2021-01-11] MEDS ORDERED: ACETAMINOPHEN 500 MG TABLET PO ONE (15:30)
[2021-01-11 15:48] LABS: BACTERIA,URINE Moderate /HPF (None Seen)
[2021-01-11 15:49] LABS: SQUAMOUS EPITHELIAL CELL,UR Few /HPF (0-2)
[2021-01-11 16:18] LABS: INR 1.01 (0.85-1.15)
[2021-01-11 16:19] LABS: PARTIAL THROMBOPLASTIN TIME 28.6 SEC (26.3-35.5)
[2021-01-11 17:07] VITALS: BP 113/56
[2021-01-11] MEDS: LEVOFLOXACIN 500 MG/D5W 100 ML 100 ML IV SCH (17:46)
[2021-01-11] MEDS ORDERED: HYDRALAZINE 20MG/ML VIAL IV PRN (18:00)
[2021-01-11] MEDS ORDERED: DIPHENHYDRAMINE HCL 25 MG CAPSULE PO PRN (18:00)
[2021-01-11] MEDS ORDERED: LACTULOSE 20 GM/30 ML UDCUP PO PRN (18:00)
[2021-01-11] MEDS ORDERED: NITROGLYCERIN 0.4 MG SL TAB SL PRN (18:00)
[2021-01-11] MEDS ORDERED: GUAIFENESIN-DM 200/20 MG 10 ML PO PRN (18:00)
[2021-01-11] MEDS ORDERED: MAG/ALUM/SIMETH 30 ML UDCUP PO PRN (18:00)
[2021-01-11] MEDS ORDERED: MORPHINE 2 MG SYG IV PRN (18:00)
[2021-01-11] MEDS ORDERED: LEVOFLOXACIN 500 MG/D5W 100 ML 100 ML IV SCH (18:00)
[2021-01-11] MEDS ORDERED: ONDANSETRON 4MG INJ IV PRN (18:00)
[2021-01-11] MEDS ORDERED: HYDROCODONE/ACETAMINOPHEN 5/325 MG TAB PO PRN (18:00)
[2021-01-11] MEDS ORDERED: ACETAMINOPHEN 325 MG TAB PO PRN ×2 (18:00)
[2021-01-11] MEDS ORDERED: 0.9%NACL 1000ML 1,000 ML IV SCH (18:00)
[2021-01-11 19:07] VITALS: BP 122/50
[2021-01-11 19:50] VITALS: BP 151/71
[2021-01-11] MEDS: INSULIN HUMULIN R 100 UNIT/ML 3ML SQ SCH (20:49)
[2021-01-11] MEDS: FAMOTIDINE 20MG TAB PO SCH (20:52)
[2021-01-11] MEDS: BENZONATATE 100 MG CAPSULE PO SCH (20:52)
[2021-01-12] VITALS (7 sets, daily range): BP systolic 109–132; BP diastolic 38–66
[2021-01-12] MEDS: 0.9%NACL 1000ML 1,000 ML IV SCH ×2 (01:04→17:00)
[2021-01-12 06:39] LABS: BASOPHILS % (AUTO) 0.4 % (0.0-5.0); EOSINOPHILS % (AUTO) 0.2 % (0.0-8.0); HEMATOCRIT 41.4 % (42-54); LYMPHOCYTES % (AUTO) 6.2 % (21.0-51.0); MEAN CORPUSCULAR HEMOGLOBIN 26.9 pg (27.0-33.0); MEAN CORPUSCULAR HGB CONC 31.9 g/dL (32.0-36.0); MEAN CORPUSCULAR VOLUME 84.3 fL (79-99); MONOCYTES % (AUTO) 6.2 % (3.0-13.0); NEUTROPHILS % (AUTO) 86.6 % (40.0-77.0); PLATELET COUNT (AUTO) 198 K/uL (130-400); RED BLOOD CELL COUNT(AUTO) 4.91 MIL/uL (4.50-6.20); RED CELL DISTRIBUTION WIDTH 14.9 % (11.0-15.5)
[2021-01-12 06:55] LABS: POTASSIUM 3.6 mmol/L (3.5-5.1)
[2021-01-12] MEDS ORDERED: MEROPENEM 500 MG VIAL IVP SCH (07:00)
[2021-01-12] MEDS: INSULIN HUMULIN R 100 UNIT/ML 3ML SQ SCH ×4 (07:16→21:00)
[2021-01-12] MEDS ORDERED: ENOXAPARIN SODIUM 40 MG/0.4 ML SYRINGE SQ SCH (09:00)
[2021-01-12] MEDS ORDERED: TAMSULOSIN HCL 0.4 MG CAP.ER.24H PO SCH (09:00)
[2021-01-12] MEDS: BENZONATATE 100 MG CAPSULE PO SCH ×3 (09:12→21:19)
[2021-01-12] MEDS: FAMOTIDINE 20MG TAB PO SCH ×2 (09:12→21:19)
[2021-01-12] MEDS: NITROFURANTOIN MONOHYD/M-CRYST 100 MG CAPSULE PO SCH ×2 (09:19→21:19)
[2021-01-12] MEDS ORDERED: ACETAMINOPHEN 650 MG SUPPOSITORY RC PRN (15:30)
[2021-01-12] MEDS ORDERED: ACETAMINOPHEN 325 MG TAB PO PRN (15:30)
[2021-01-12 16:06] LABS: HEMOGLOBIN A1C 6.5 % (4.0-6.0)
[2021-01-12] MEDS: LEVOFLOXACIN 500 MG/D5W 100 ML 100 ML IV SCH (17:37)
[2021-01-13 02:22] VITALS: BP 120/40
[2021-01-13 06:08] LABS: HEMATOCRIT 41.5 % (42-54); MEAN CORPUSCULAR VOLUME 84.2 fL (79-99); RED BLOOD CELL COUNT(AUTO) 4.93 MIL/uL (4.50-6.20); RED CELL DISTRIBUTION WIDTH 14.6 % (11.0-15.5); WHITE BLOOD COUNT (AUTO) 9.8 K/uL (4.8-10.8)
[2021-01-13 06:14] LABS: POTASSIUM 3.8 mmol/L (3.5-5.1)
[2021-01-13] MEDS: 0.9%NACL 1000ML 1,000 ML IV SCH (07:20)
[2021-01-13] MEDS: INSULIN HUMULIN R 100 UNIT/ML 3ML SQ SCH (07:30)
[2021-01-13 07:59] VITALS: BP 118/67
[2021-01-13] MEDS ORDERED: SULF1TAB42 PO (08:21)
[2021-01-13 09:50] VITALS: BP 108/57
== END 2021-01-13 09:40 | disposition home or self-care (01) ==
LOC: EDH 11:37 → EDHIP 17:53
PROVIDERS: ADMIT Internal Medicine; ATTEND Internal Medicine
DX: A41.9 Sepsis, unspecified organism (principal); Z20.822 Contact with and (suspected) exposure to COVID-19; N39.0 Urinary tract infection, site not specified; N40.0 Benign prostatic hyperplasia without lower urinary tract symptoms; E66.9 Obesity, unspecified; I10 Essential (primary) hypertension; D72.829 Elevated white blood cell count, unspecified; E78.00 Pure hypercholesterolemia, unspecified; R73.9 Hyperglycemia, unspecified; E78.5 Hyperlipidemia, unspecified; Z79.899 Other long term (current) drug therapy; Z98.890 Other specified postprocedural states; Z16.12 Extended spectrum beta lactamase (ESBL) resistance; Z87.440 Personal history of urinary (tract) infections; Z88.0 Allergy status to penicillin; Z68.39 Body mass index [BMI] 39.0-39.9, adult
CPT/HCPCS: 36415; 74176; 80048; 80053; 81001; 82550; 82948; 83036; 83605; 85025; 85027; 85610; 85730; 87040; 87077; 87088; 87186; 87635; 87804; 87880; 96361; 96365; 96366; 96372; C9803; G0378; J1650; J1956; J7030

== ENCOUNTER 2021-02-25 03:25 | Emergency (ER) | payer OTHER ==
[~2021-02-25] VITALS: Ht 170.2 cm; Wt 110.7 kg
[~2021-02-25 03:25] MED LIST changes: +SULF1TAB42 PO
[2021-02-25] MEDS ORDERED: ONDANSETRON 4MG INJ IVP ONE (04:00)
[2021-02-25] MEDS ORDERED: PANTOPRAZOLE 40 MG/VIAL IVP ONE (04:00)
[2021-02-25] MEDS ORDERED: 0.9%NACL 1000ML 1,000 ML IV ONE (04:00)
[2021-02-25] MEDS ORDERED: FAMOTIDINE 20MG VIAL IV ONE (04:00)
[2021-02-25] MEDS ORDERED: METOCLOPRAMIDE 10 MG/2 ML VIAL IVP ONE (04:00)
[2021-02-25 04:08] LABS: BASOPHILS % (AUTO) 0.2 % (0.0-5.0); EOSINOPHILS % (AUTO) 0.1 % (0.0-8.0); HEMATOCRIT 43.1 % (42-54); LYMPHOCYTES % (AUTO) 3.4 % (21.0-51.0); MEAN CORPUSCULAR HEMOGLOBIN 27.2 pg (27.0-33.0); MEAN CORPUSCULAR HGB CONC 32.5 g/dL (32.0-36.0); MEAN CORPUSCULAR VOLUME 83.7 fL (79-99); MONOCYTES % (AUTO) 3.9 % (3.0-13.0); PLATELET COUNT (AUTO) 210 K/uL (130-400); RED BLOOD CELL COUNT(AUTO) 5.15 MIL/uL (4.50-6.20); RED CELL DISTRIBUTION WIDTH 14.7 % (11.0-15.5); WHITE BLOOD COUNT (AUTO) 16.2 K/uL (4.8-10.8)
[2021-02-25 04:19] LABS: ALBUMIN 3.8 g/dL (3.5-5.0); BILIRUBIN,TOTAL 0.7 mg/dL (0.2-1.0); POTASSIUM 3.7 mmol/L (3.5-5.1); TOTAL PROTEIN, SERUM 7.8 g/dL (6.0-8.3)
[2021-02-25] MEDS ORDERED: IOHEXOL 350 MG/ML 100ML INFUS..BTL IV ONE (04:48)
[2021-02-25 05:27] LABS: APPEARANCE,URINE Cloudy (CLEAR); BILIRUBIN,URINE Negative (NEGATIVE); COLOR,URINE Yellow (YELLOW); GLUCOSE, URINE (UA) Negative (NEGATIVE); KETONES,URINE Negative (NEGATIVE); LEUKOCYTE ESTERASE ,URINE Large (NEGATIVE); NITRATE,URINE Positive (NEGATIVE); OCCULT BLOOD,URINE Small (NEGATIVE); PROTEIN,URINE Negative (NEGATIVE)
[2021-02-25 06:08] LABS: BACTERIA,URINE Moderate /HPF (None Seen); RBC,URINE 0-1 /HPF (0-1); SQUAMOUS EPITHELIAL CELL,UR Rare /HPF (0-2)
[2021-02-25] MEDS ORDERED: CEFTRIAXONE 2GM VIAL IVP SCH (06:30)
[2021-02-25] MEDS ORDERED: CEFTRIAXONE 1G VIAL ONE ×2 (06:33→06:42)
[2021-02-25 06:39] VITALS: BP 111/61
[2021-02-25] MEDS ORDERED: CEPH500B PO (06:59)
[2021-02-25] MEDS ORDERED: ONDA4TAB10 PO (06:59)
== END 2021-02-25 07:29 | disposition home or self-care (01) ==
LOC: EDH 03:25
DX: N39.0 Urinary tract infection, site not specified (principal); E86.9 Volume depletion, unspecified; R11.2 Nausea with vomiting, unspecified; Z20.822 Contact with and (suspected) exposure to COVID-19; E78.00 Pure hypercholesterolemia, unspecified; I10 Essential (primary) hypertension; J44.9 Chronic obstructive pulmonary disease, unspecified; Z79.899 Other long term (current) drug therapy; Z88.0 Allergy status to penicillin
CPT/HCPCS: 36415; 71045; 74177; 80053; 81001; 83605; 83690; 84484; 85025; 87040 ×2; 87077; 87088; 87186; 87635; 87804 ×2; 93005; 96374; 96375; 99285; C9113; C9803; J0696 ×2; J2405; J2765; J3490; J7030; Q9967

== ENCOUNTER 2021-05-03 03:10 | Observation (INO) | payer OTHER ==
[~2021-05-03] VITALS: Ht 167.6 cm; Wt 111.9 kg
[~2021-05-03 03:10] MED LIST changes: +CEPH500B PO; +ONDA4TAB10 PO
[2021-05-03] MEDS ORDERED: CEFTRIAXONE 1G VIAL 2 GM in 0.9%NACL 100ML 100 ML IV ONE (03:30)
[2021-05-03] MEDS ORDERED: ACETAMINOPHEN 500 MG TABLET PO ONE (03:30)
[2021-05-03] MEDS ORDERED: 0.9%NACL 1000ML 1,000 ML IV ONE (03:30)
[2021-05-03 03:40] LABS: APPEARANCE,URINE HAZY (CLEAR); BILIRUBIN,URINE Negative (NEGATIVE); COLOR,URINE Yellow (YELLOW); GLUCOSE, URINE (UA) Negative (NEGATIVE); KETONES,URINE Negative (NEGATIVE); LEUKOCYTE ESTERASE ,URINE Large (NEGATIVE); NITRATE,URINE Positive (NEGATIVE); OCCULT BLOOD,URINE Nonhemolyzed Trace (NEGATIVE); PROTEIN,URINE Negative (NEGATIVE)
[2021-05-03] MEDS ORDERED: MEROPENEM 1 GM VIAL ONE (03:46)
[2021-05-03 03:57] LABS: BASOPHILS % (AUTO) 0.4 % (0.0-5.0); EOSINOPHILS % (AUTO) 0.2 % (0.0-8.0); HEMATOCRIT 42.4 % (42-54); LYMPHOCYTES % (AUTO) 3.5 % (21.0-51.0); MEAN CORPUSCULAR HEMOGLOBIN 27.2 pg (27.0-33.0); MEAN CORPUSCULAR HGB CONC 32.1 g/dL (32.0-36.0); MEAN CORPUSCULAR VOLUME 84.8 fL (79-99); MONOCYTES % (AUTO) 4.6 % (3.0-13.0); NEUTROPHILS % (AUTO) 90.9 % (40.0-77.0); PLATELET COUNT (AUTO) 217 K/uL (130-400); RED CELL DISTRIBUTION WIDTH 14.6 % (11.0-15.5); WHITE BLOOD COUNT (AUTO) 18.9 K/uL (4.8-10.8)
[2021-05-03] MEDS ORDERED: MEROPENEM 1 GM VIAL IVP SCH (04:00)
[2021-05-03 04:03] LABS: CREATININE 1.2 mg/dL (0.5-1.5); POTASSIUM 3.7 mmol/L (3.5-5.1)
[2021-05-03 04:04] LABS: BACTERIA,URINE Moderate /HPF (None Seen); SQUAMOUS EPITHELIAL CELL,UR 0-2 /HPF (0-2); WBC,URINE 51-100 /HPF (0-1)
[2021-05-03 04:08] LABS: ALBUMIN 3.6 g/dL (3.5-5.0); BILIRUBIN,TOTAL 0.6 mg/dL (0.2-1.0); TOTAL PROTEIN, SERUM 7.3 g/dL (6.0-8.3)
[2021-05-03] MEDS ORDERED: LACTULOSE 20 GM/30 ML UDCUP PO PRN (04:30)
[2021-05-03] MEDS ORDERED: ACETAMINOPHEN 325 MG TAB PO PRN ×2 (04:30)
[2021-05-03] MEDS ORDERED: ZOLPIDEM TARTRATE 5 MG TAB PO PRN (04:30)
[2021-05-03] MEDS ORDERED: MAG/ALUM/SIMETH 30 ML UDCUP PO PRN (04:30)
[2021-05-03] MEDS ORDERED: GUAIFENESIN-DM 200/20 MG 10 ML PO PRN (04:30)
[2021-05-03] MEDS ORDERED: NITROGLYCERIN 0.4 MG SL TAB SL PRN (04:30)
[2021-05-03] MEDS: LACTATED RINGERS 1000ML 1,000 ML IV SCH ×2 (04:30→17:40)
[2021-05-03] MEDS ORDERED: ONDANSETRON 4MG INJ IV PRN (04:30)
[2021-05-03] MEDS: MEROPENEM 1 GM VIAL IVP SCH ×2 (04:51→17:41)
[2021-05-03] MEDS: FAMOTIDINE 20MG VIAL IV SCH (08:55)
[2021-05-03] MEDS: ENOXAPARIN SODIUM 40 MG/0.4 ML SYRINGE SQ SCH (08:55)
[2021-05-03] MEDS: TRAMADOL HCL 50 MG TABLET PO PRN (10:00)
[2021-05-04] MEDS: LACTATED RINGERS 1000ML 1,000 ML IV SCH ×2 (00:30→10:30)
[2021-05-04] MEDS: MEROPENEM 1 GM VIAL IVP SCH ×3 (06:10→22:35)
[2021-05-04 07:18] LABS: HEMATOCRIT 41.3 % (42-54); MEAN CORPUSCULAR HEMOGLOBIN 27.3 pg (27.0-33.0); MEAN CORPUSCULAR HGB CONC 32.4 g/dL (32.0-36.0); MEAN CORPUSCULAR VOLUME 84.1 fL (79-99); RED BLOOD CELL COUNT(AUTO) 4.91 MIL/uL (4.50-6.20); RED CELL DISTRIBUTION WIDTH 14.7 % (11.0-15.5); WHITE BLOOD COUNT (AUTO) 11.8 K/uL (4.8-10.8)
[2021-05-04 07:29] LABS: CREATININE 0.9 mg/dL (0.5-1.5); POTASSIUM 3.9 mmol/L (3.5-5.1)
[2021-05-04] MEDS: FAMOTIDINE 20MG VIAL IV SCH (09:12)
[2021-05-04] MEDS: ENOXAPARIN SODIUM 40 MG/0.4 ML SYRINGE SQ SCH (09:13)
[2021-05-04 09:50] VITALS: BP 130/73
[2021-05-04 11:52] VITALS: BP 114/61
[2021-05-04] MEDS: TRAMADOL HCL 50 MG TABLET PO PRN (15:12)
[2021-05-04 16:00] VITALS: BP 127/83
[2021-05-04 19:45] VITALS: BP 92/57
[2021-05-04 23:20] VITALS: BP 104/62
[2021-05-05 03:36] VITALS: BP 113/58
[2021-05-05 04:18] LABS: HEMATOCRIT 42.4 % (42-54); MEAN CORPUSCULAR HEMOGLOBIN 27.3 pg (27.0-33.0); MEAN CORPUSCULAR HGB CONC 32.1 g/dL (32.0-36.0); RED BLOOD CELL COUNT(AUTO) 4.99 MIL/uL (4.50-6.20); RED CELL DISTRIBUTION WIDTH 14.6 % (11.0-15.5); WHITE BLOOD COUNT (AUTO) 7.3 K/uL (4.8-10.8)
[2021-05-05 04:27] LABS: POTASSIUM 3.8 mmol/L (3.5-5.1)
[2021-05-05] MEDS: MEROPENEM 1 GM VIAL IVP SCH (06:00)
[2021-05-05] MEDS ORDERED: SULF1TAB42 PO (07:52)
[2021-05-05 08:00] VITALS: BP 112/67
[2021-05-05] MEDS: FAMOTIDINE 20MG VIAL IV SCH (08:55)
[2021-05-05] MEDS ORDERED: TAMSULOSIN HCL 0.4 MG CAP.ER.24H PO SCH (09:00)
== END 2021-05-05 11:10 | disposition home or self-care (01) ==
LOC: EDH 03:10 → EDHIP 04:21 → 3AH 05-04 10:02
PROVIDERS: ADMIT Internal Medicine; ATTEND Internal Medicine
DX: A41.9 Sepsis, unspecified organism (principal); Z20.822 Contact with and (suspected) exposure to COVID-19; N39.0 Urinary tract infection, site not specified; E87.2 Acidosis; E66.9 Obesity, unspecified; N40.0 Benign prostatic hyperplasia without lower urinary tract symptoms; E78.5 Hyperlipidemia, unspecified; N41.9 Inflammatory disease of prostate, unspecified; E78.00 Pure hypercholesterolemia, unspecified; E66.01 Morbid (severe) obesity due to excess calories; A41.50 Gram-negative sepsis, unspecified; K42.9 Umbilical hernia without obstruction or gangrene; K57.90 Diverticulosis of intestine, part unspecified, without perforation or abscess without bleeding; M47.815 Spondylosis without myelopathy or radiculopathy, thoracolumbar region; N20.0 Calculus of kidney; R11.2 Nausea with vomiting, unspecified; N28.1 Cyst of kidney, acquired; Z87.442 Personal history of urinary calculi; Z79.899 Other long term (current) drug therapy; Z87.440 Personal history of urinary (tract) infections; Z88.0 Allergy status to penicillin; Z98.890 Other specified postprocedural states; Z68.39 Body mass index [BMI] 39.0-39.9, adult
CPT/HCPCS: 36415 ×3; 74176; 80048 ×2; 80053; 81001; 82948; 83605 ×2; 84145; 84484; 85025; 85027 ×2; 87040 ×2; 87077; 87088; 87186; 87635; 96361 ×2; 96372 ×2; 96374; 96375; 96376 ×3; 99284; C9803; G0378 ×54; J1650 ×2; J2185 ×6; J3490 ×3; J7030; J7120 ×3

== ENCOUNTER 2021-05-21 03:09 | Inpatient (IN) | payer MEDICARE, OTHER ==
[~2021-05-21] VITALS: Ht 167.6 cm; Wt 104.4 kg
[~2021-05-21 03:09] MED LIST changes: -CEPH500B PO; -ONDA4TAB10 PO
[2021-05-21 04:11] LABS: APPEARANCE,URINE Cloudy (CLEAR); BILIRUBIN,URINE Negative (NEGATIVE); COLOR,URINE Yellow (YELLOW); GLUCOSE, URINE (UA) Negative (NEGATIVE); KETONES,URINE Negative (NEGATIVE); LEUKOCYTE ESTERASE ,URINE Large (NEGATIVE); NITRATE,URINE Positive (NEGATIVE); OCCULT BLOOD,URINE Small (NEGATIVE); PH,URINE 5.5 (5.0-8.0); PROTEIN,URINE Negative (NEGATIVE)
[2021-05-21 05:17] LABS: EOSINOPHILS % (AUTO) 2.2 % (0.0-8.0); HEMATOCRIT 39.5 % (42-54); LYMPHOCYTES % (AUTO) 10.9 % (21.0-51.0); MEAN CORPUSCULAR HGB CONC 32.2 g/dL (32.0-36.0); MEAN CORPUSCULAR VOLUME 83.9 fL (79-99); MONOCYTES % (AUTO) 6.3 % (3.0-13.0); NEUTROPHILS % (AUTO) 79.3 % (40.0-77.0); PLATELET COUNT (AUTO) 241 K/uL (130-400); RED BLOOD CELL COUNT(AUTO) 4.71 MIL/uL (4.50-6.20); RED CELL DISTRIBUTION WIDTH 14.6 % (11.0-15.5); WHITE BLOOD COUNT (AUTO) 7.9 K/uL (4.8-10.8)
[2021-05-21 05:18] LABS: BACTERIA,URINE Moderate /HPF (None Seen); RBC,URINE 0-1 /HPF (0-1)
[2021-05-21 05:19] LABS: SQUAMOUS EPITHELIAL CELL,UR Few /HPF (0-2)
[2021-05-21 05:26] LABS: CREATININE 1.1 mg/dL (0.5-1.5); POTASSIUM 3.8 mmol/L (3.5-5.1)
[2021-05-21] MEDS ORDERED: LACTULOSE 20 GM/30 ML UDCUP PO PRN (06:00)
[2021-05-21] MEDS ORDERED: ALBUTEROL 0.083% 2.5 MG/3 ML INH IH PRN (06:00)
[2021-05-21] MEDS ORDERED: CEFTRIAXONE 1G VIAL IVP ONE (06:00)
[2021-05-21] MEDS ORDERED: LEVOFLOXACIN 500 MG/D5W 100 ML 100 ML ONE (06:14)
[2021-05-21] MEDS ORDERED: ONDANSETRON 4MG INJ IVP PRN (06:30)
[2021-05-21] MEDS: INSULIN HUMULIN R 100 UNIT/ML 3ML SQ SCH ×4 (07:30→21:00)
[2021-05-21] MEDS: PANTOPRAZOLE 40 MG TAB DR PO SCH (08:40)
[2021-05-21] MEDS ORDERED: ATOR20TA65 PO (11:03)
[2021-05-21] MEDS: ACETAMINOPHEN 325 MG TAB PO PRN (11:48)
[2021-05-21] MEDS ORDERED: TAMSULOSIN HCL 0.4 MG CAP.ER.24H PO SCH ×2 (12:00→23:00)
[2021-05-21] MEDS: MEROPENEM 1 GM VIAL IVP SCH ×2 (15:12→23:09)
[2021-05-21] MEDS: ATORVASTATIN 20 MG TABLET PO SCH (21:17)
[2021-05-21 22:40] VITALS: BP 127/71
[2021-05-22 04:00] VITALS: BP 122/66
[2021-05-22] MEDS: INSULIN HUMULIN R 100 UNIT/ML 3ML SQ SCH ×4 (05:32→20:43)
[2021-05-22] MEDS: MEROPENEM 1 GM VIAL IVP SCH ×2 (05:35→18:30)
[2021-05-22] MEDS: PANTOPRAZOLE 40 MG TAB DR PO SCH (05:35)
[2021-05-22] MEDS ORDERED: LEVOFLOXACIN 500 MG/D5W 100 ML 100 ML IV SCH (06:00)
[2021-05-22] MEDS: TAMSULOSIN HCL 0.4 MG CAP.ER.24H PO SCH ×2 (08:52→19:52)
[2021-05-22 13:28] VITALS: BP 125/73
[2021-05-22 18:06] VITALS: BP 124/72
[2021-05-22] MEDS: FUROSEMIDE 20MG VIAL IV SCH (18:30)
[2021-05-22] MEDS: ATORVASTATIN 20 MG TABLET PO SCH (19:52)
[2021-05-22 20:00] VITALS: BP 142/78
[2021-05-22] MEDS ORDERED: TAMSULOSIN HCL 0.4 MG CAP.ER.24H PO SCH (21:00)
[2021-05-23] VITALS (24 sets, daily range): BP systolic 94–137; BP diastolic 48–75
[2021-05-23] MEDS: MEROPENEM 1 GM VIAL IVP SCH ×4 (00:17→20:54)
[2021-05-23 04:49] LABS: HEMATOCRIT 41.2 % (42-54); MEAN CORPUSCULAR HEMOGLOBIN 26.8 pg (27.0-33.0); MEAN CORPUSCULAR VOLUME 83.6 fL (79-99); RED BLOOD CELL COUNT(AUTO) 4.93 MIL/uL (4.50-6.20); RED CELL DISTRIBUTION WIDTH 14.8 % (11.0-15.5); WHITE BLOOD COUNT (AUTO) 7.9 K/uL (4.8-10.8)
[2021-05-23 05:16] LABS: POTASSIUM 3.8 mmol/L (3.5-5.1)
[2021-05-23] MEDS: FUROSEMIDE 20MG VIAL IV SCH ×2 (06:12→20:54)
[2021-05-23] MEDS: PANTOPRAZOLE 40 MG TAB DR PO SCH (06:13)
[2021-05-23] MEDS: INSULIN HUMULIN R 100 UNIT/ML 3ML SQ SCH ×4 (06:13→20:54)
[2021-05-23] MEDS: TAMSULOSIN HCL 0.4 MG CAP.ER.24H PO SCH ×2 (08:10→20:54)
[2021-05-23] MEDS ORDERED: LACTATED RINGERS 1000ML 1,000 ML IV ONE (15:28)
[2021-05-23] MEDS ORDERED: LIDOCAINE PF 100MG/5ML (2%) SYRINGE 5ML ONE (16:57)
[2021-05-23] MEDS ORDERED: SUCCINYLCHOLINE 200MG/10ML SYR ONE (16:57)
[2021-05-23] MEDS ORDERED: MIDAZOLAM HCL 1 MG/ML 2ML VIAL ONE (16:57)
[2021-05-23] MEDS ORDERED: PROPOFOL 10 MG/ML 20ML VIAL IV ONE (16:57)
[2021-05-23] MEDS ORDERED: ROCURONIUM 10MG/1ML SYR 10 MG/ML ML ONE (17:11)
[2021-05-23] MEDS ORDERED: PHENYLEPHRINE HCL 10 MG/ML 1ML VIAL IV ONE (17:19)
[2021-05-23] MEDS ORDERED: EPHEDRINE SULFATE 50 MG/ML AMPULE ONE (17:29)
[2021-05-23] MEDS ORDERED: SUGAMMADEX SODIUM 200 MG/2 ML VIAL IV ONE (17:40)
[2021-05-23] MEDS ORDERED: ONDANSETRON 4MG INJ ONE (17:40)
[2021-05-23] MEDS: ATORVASTATIN 20 MG TABLET PO SCH (20:54)
[2021-05-24 03:23] VITALS: BP 118/57
[2021-05-24 04:39] LABS: BASOPHILS % (AUTO) 0.7 % (0.0-5.0); EOSINOPHILS % (AUTO) 2.2 % (0.0-8.0); HEMATOCRIT 42.6 % (42-54); LYMPHOCYTES % (AUTO) 12.3 % (21.0-51.0); MEAN CORPUSCULAR HEMOGLOBIN 26.7 pg (27.0-33.0); MEAN CORPUSCULAR HGB CONC 31.7 g/dL (32.0-36.0); MEAN CORPUSCULAR VOLUME 84.4 fL (79-99); MONOCYTES % (AUTO) 7.4 % (3.0-13.0); NEUTROPHILS % (AUTO) 77.2 % (40.0-77.0); PLATELET COUNT (AUTO) 252 K/uL (130-400); RED BLOOD CELL COUNT(AUTO) 5.05 MIL/uL (4.50-6.20); RED CELL DISTRIBUTION WIDTH 14.6 % (11.0-15.5); WHITE BLOOD COUNT (AUTO) 9.5 K/uL (4.8-10.8)
[2021-05-24 04:51] LABS: ALBUMIN 3.6 g/dL (3.5-5.0); BILIRUBIN,TOTAL 0.6 mg/dL (0.2-1.0); CREATININE 1.1 mg/dL (0.5-1.5); POTASSIUM 3.7 mmol/L (3.5-5.1); TOTAL PROTEIN, SERUM 7.7 g/dL (6.0-8.3)
[2021-05-24] MEDS: MEROPENEM 1 GM VIAL IVP SCH ×3 (06:44→21:16)
[2021-05-24] MEDS: PANTOPRAZOLE 40 MG TAB DR PO SCH (06:44)
[2021-05-24] MEDS: FUROSEMIDE 20MG VIAL IV SCH ×2 (06:45→17:22)
[2021-05-24] MEDS: INSULIN HUMULIN R 100 UNIT/ML 3ML SQ SCH ×4 (07:17→21:00)
[2021-05-24 07:52] VITALS: BP 114/66
[2021-05-24] MEDS: TAMSULOSIN HCL 0.4 MG CAP.ER.24H PO SCH ×2 (08:25→21:17)
[2021-05-24] MEDS: PHENAZOPYRIDINE HCL 200 MG TABLET PO SCH ×2 (08:25→21:17)
[2021-05-24 11:30] VITALS: BP 122/56
[2021-05-24 16:13] VITALS: BP 118/47
[2021-05-24 17:56] LABS: PROTHROMBIN TIME 10.9 SEC (9.6-11.6)
[2021-05-24 17:57] LABS: PARTIAL THROMBOPLASTIN TIME 27.3 SEC (26.3-35.5)
[2021-05-24 20:00] VITALS: BP 129/66
[2021-05-24] MEDS: ATORVASTATIN 20 MG TABLET PO SCH (21:17)
[2021-05-25] VITALS: BP 123/50
[2021-05-25] MEDS: ACETAMINOPHEN 325 MG TAB PO PRN (00:23)
[2021-05-25 04:00] VITALS: BP 121/67
[2021-05-25 05:51] LABS: BASOPHILS % (AUTO) 0.7 % (0.0-5.0); EOSINOPHILS % (AUTO) 3.3 % (0.0-8.0); HEMATOCRIT 44.8 % (42-54); LYMPHOCYTES % (AUTO) 19.7 % (21.0-51.0); MEAN CORPUSCULAR HEMOGLOBIN 27.1 pg (27.0-33.0); MEAN CORPUSCULAR HGB CONC 32.4 g/dL (32.0-36.0); MEAN CORPUSCULAR VOLUME 83.6 fL (79-99); MONOCYTES % (AUTO) 7.2 % (3.0-13.0); NEUTROPHILS % (AUTO) 68.9 % (40.0-77.0); PLATELET COUNT (AUTO) 274 K/uL (130-400); RED BLOOD CELL COUNT(AUTO) 5.36 MIL/uL (4.50-6.20); RED CELL DISTRIBUTION WIDTH 14.5 % (11.0-15.5); WHITE BLOOD COUNT (AUTO) 8.1 K/uL (4.8-10.8)
[2021-05-25 06:04] LABS: ALBUMIN 3.7 g/dL (3.5-5.0); BILIRUBIN,TOTAL 0.6 mg/dL (0.2-1.0); CREATININE 1.1 mg/dL (0.5-1.5); POTASSIUM 3.8 mmol/L (3.5-5.1); TOTAL PROTEIN, SERUM 8.1 g/dL (6.0-8.3)
[2021-05-25] MEDS: MEROPENEM 1 GM VIAL IVP SCH ×3 (06:34→22:17)
[2021-05-25] MEDS: PANTOPRAZOLE 40 MG TAB DR PO SCH (06:35)
[2021-05-25] MEDS: FUROSEMIDE 20MG VIAL IV SCH ×2 (06:35→18:08)
[2021-05-25] MEDS: INSULIN HUMULIN R 100 UNIT/ML 3ML SQ SCH ×4 (06:36→20:04)
[2021-05-25 08:00] VITALS: BP 125/71
[2021-05-25] MEDS: TAMSULOSIN HCL 0.4 MG CAP.ER.24H PO SCH ×2 (09:17→20:13)
[2021-05-25] MEDS: PHENAZOPYRIDINE HCL 200 MG TABLET PO SCH ×2 (09:17→20:13)
[2021-05-25 12:00] VITALS: BP 131/67
[2021-05-25 16:00] VITALS: BP 128/58
[2021-05-25 19:00] VITALS: BP 126/68
[2021-05-25] MEDS: ATORVASTATIN 20 MG TABLET PO SCH (20:13)
[2021-05-26] VITALS: BP 118/75
[2021-05-26 04:00] VITALS: BP 109/58
[2021-05-26] MEDS: INSULIN HUMULIN R 100 UNIT/ML 3ML SQ SCH ×4 (05:47→20:27)
[2021-05-26] MEDS: FUROSEMIDE 20MG VIAL IV SCH ×2 (06:05→19:15)
[2021-05-26] MEDS: MEROPENEM 1 GM VIAL IVP SCH ×3 (06:05→21:38)
[2021-05-26] MEDS: PANTOPRAZOLE 40 MG TAB DR PO SCH (06:05)
[2021-05-26 07:50] VITALS: BP 126/74
[2021-05-26] MEDS: PHENAZOPYRIDINE HCL 200 MG TABLET PO SCH ×2 (09:53→21:38)
[2021-05-26] MEDS: TAMSULOSIN HCL 0.4 MG CAP.ER.24H PO SCH ×2 (09:53→21:38)
[2021-05-26 12:00] VITALS: BP 134/74
[2021-05-26 15:27] VITALS: BP 152/64
[2021-05-26 20:00] VITALS: BP 157/69
[2021-05-26] MEDS: ATORVASTATIN 20 MG TABLET PO SCH (21:38)
[2021-05-27] VITALS: BP 128/71
[2021-05-27 04:00] VITALS: BP 133/69
[2021-05-27] MEDS: PANTOPRAZOLE 40 MG TAB DR PO SCH (05:05)
[2021-05-27] MEDS: MEROPENEM 1 GM VIAL IVP SCH ×2 (05:06→14:38)
[2021-05-27] MEDS: FUROSEMIDE 20MG VIAL IV SCH (05:07)
[2021-05-27] MEDS: INSULIN HUMULIN R 100 UNIT/ML 3ML SQ SCH (06:41)
[2021-05-27 07:10] VITALS: BP 115/66
[2021-05-27] MEDS: TAMSULOSIN HCL 0.4 MG CAP.ER.24H PO SCH (09:17)
[2021-05-27 11:20] VITALS: BP 128/67
[2021-05-27 15:20] VITALS: BP 102/51
== END 2021-05-27 18:00 | DRG 690 ==
LOC: EDH 03:09 → EDHIP 06:00 → OBSVTOIN 06:00 → 3CH 20:58
PROVIDERS: ADMIT Internal Medicine Pulmonary Disease; ATTEND Internal Medicine Pulmonary Disease
PROC: 0T7D8ZZ Dilation of Urethra, Via Natural or Artificial Opening Endoscopic (ICD-10-PCS; principal; 2021-05-23 07:03)
DX: N30.00 Acute cystitis without hematuria (principal); Z16.12 Extended spectrum beta lactamase (ESBL) resistance; N13.8 Other obstructive and reflux uropathy; Z68.38 Body mass index [BMI] 38.0-38.9, adult; E66.9 Obesity, unspecified; N40.1 Benign prostatic hyperplasia with lower urinary tract symptoms; N20.0 Calculus of kidney; E78.5 Hyperlipidemia, unspecified; N35.919 Unspecified urethral stricture, male, unspecified site; K76.0 Fatty (change of) liver, not elsewhere classified; B96.20 Unspecified Escherichia coli [E. coli] as the cause of diseases classified elsewhere; G89.29 Other chronic pain; Z20.822 Contact with and (suspected) exposure to COVID-19; K21.9 Gastro-esophageal reflux disease without esophagitis; E78.00 Pure hypercholesterolemia, unspecified; N28.1 Cyst of kidney, acquired; Z96.652 Presence of left artificial knee joint; Z88.0 Allergy status to penicillin; Z79.899 Other long term (current) drug therapy; Z90.49 Acquired absence of other specified parts of digestive tract; Z87.891 Personal history of nicotine dependence; Z87.442 Personal history of urinary calculi; Z87.440 Personal history of urinary (tract) infections; Z86.19 Personal history of other infectious and parasitic diseases
CPT/HCPCS: 36415; 76770; 80048; 80053; 81001; 82948; 85025; 85027; 85610; 85730; 87077; 87088; 87186; 87635; 94664; A4344; A4354; C1758; C1769; G0378; J0330; J0696; J1940; J1956; J2001; J2185; J2250; J2370; J2405; J2704; J3490; J7120

== ENCOUNTER 2021-07-23 10:53 | Emergency (ER) | payer OTHER, MEDICARE ==
[~2021-07-23] VITALS: Ht 167.6 cm; Wt 108.9 kg
[~2021-07-23 10:53] MED LIST changes: +ATOR20TA65 PO; -SULF1TAB42 PO
[2021-07-23 11:22] LABS: APPEARANCE,URINE CLEAR (CLEAR); BILIRUBIN,URINE NEGATIVE (NEGATIVE); COLOR,URINE YELLOW (YELLOW); GLUCOSE, URINE (UA) NEGATIVE (NEGATIVE); KETONES,URINE NEGATIVE (NEGATIVE); LEUKOCYTE ESTERASE ,URINE SMALL (NEGATIVE); NITRATE,URINE POSITIVE (NEGATIVE); OCCULT BLOOD,URINE MODERATE (NEGATIVE); PROTEIN,URINE NEGATIVE (NEGATIVE); UROBILINOGEN,URINE 0.2 mg/dL (0.2-1.0)
[2021-07-23 11:40] LABS: SQUAMOUS EPITHELIAL CELL,UR 0-2 /HPF (0-2)
[2021-07-23 11:41] LABS: BACTERIA,URINE Moderate /HPF (None Seen)
[2021-07-23] MEDS ORDERED: CIPR250S5 PO (11:48)
[2021-07-23 12:06] VITALS: BP 132/64
== END 2021-07-23 12:07 | disposition home or self-care (01) ==
LOC: EDH 10:53
DX: N39.0 Urinary tract infection, site not specified (principal); N40.1 Benign prostatic hyperplasia with lower urinary tract symptoms; R33.8 Other retention of urine; E78.00 Pure hypercholesterolemia, unspecified; Z88.0 Allergy status to penicillin; Z90.49 Acquired absence of other specified parts of digestive tract
CPT/HCPCS: 51702; 81001; 87077; 87088; 87186

== ENCOUNTER → 2024-08-26 | Outpatient (CLI) | payer OTHER ==
[~2024-08-26] MED LIST changes: +CEFD300C3 PO; +LEVO750T68 PO; -TAMS-1 PO; +TAMS-55 PO
--- NOTE | 2024-08-26 09:53 | HMCIMG ---
ABD 1VW HISTORY: Renal stone COMPARISON: None FINDINGS: A frontal projection of the abdomen was obtained. Right percutaneous nephrostomy tube is seen. A nonspecific bowel gas pattern is seen. Fecal material is seen in the colon there appears to be small renal stone in the lower mid pole of the right kidney lateral by overlying bowel gas.. Evaluation for renal stone is limited due to overlying bowel gas. Degenerative changes of the thoracolumbar spine are noted. IMPRESSION: 1. Findings as described above.
--- NOTE | 2024-08-26 13:10 | HMCIMG ---
TOMOGRAM REASON: CALCULUS OF KIDNEY. COMPARISON: None TECHNIQUE: 9 tomogram images of the kidneys were obtained. FINDINGS: There is right-sided percutaneous nephrostomy tube. There is left lower pole renal stone measuring 17.3 mm. IMPRESSION: Left lower pole renal stone measuring 17.3 mm.
== END | disposition home or self-care (01) ==
LOC: RAH 08:59
PROVIDERS: ATTEND Urology
DX: N20.0 Calculus of kidney (principal); M47.815 Spondylosis without myelopathy or radiculopathy, thoracolumbar region; Z93.6 Other artificial openings of urinary tract status
CPT/HCPCS: 74018; 76100

== ENCOUNTER 2024-11-30 06:52 | Emergency (ER) | payer OTHER ==
[~2024-11-30] VITALS: Ht 167.6 cm; Wt 104.3 kg
[~2024-11-30 06:52] MED LIST changes: +ASPI-1443 PO; -CEFD300C3 PO; +CHOL2000 PO; +DORZ10DR10 OP; -LEVO750T68 PO; +VANCO250PO PO
--- NOTE | 2024-11-30 07:17 | ERN ---
General Chief Complaint: Urinary Retention Stated Complaint: URINARY RETENTION Time Seen by MD: 07:09 Source: patient History of Present Illness Initial Comments Is a 79-year-old male coming in complaining of unable to void. Per patient he had a lithotripsy performed one week ago by Dr. Batista and has been having discomfort since. He states that this morning he was not able to void so is here for further evaluation. Allergies: Coded Allergies: No Known Drug Allergies (Unverified Allergy, Unknown, 06/06/24) Penicillins (Verified Allergy, Unknown, 08/07/24) Home Meds Active Scripts Vancomycin HCl (Vancocin Oral Soln 250 mg) 500 Mg Soln, 250 MG PO Q6H for 7 Days, #28 ML Prov:MARCOS LEACH LABEL DRIER 10/23/24 Tamsulosin HCl (Flomax) 0.4 Mg Cap.er.24h, 0.4 MG PO AM, #30 CAPSULE. Prov:LUZ MARIA ABDULLAHI PA 08/09/24 Reported Medications Dorzolamide HCl/Timolol Maleat (Dorzolamide-Timolol Eye Drops) 22.3 Mg-6.8 Mg/Ml Drops, 1 DROP OP BID, #10 ML 0 Refills 10/19/24 Cholecalciferol (Vitamin D3) (Vitamin D3) 50 Mcg (2000 Unit) Capsule, 1 CAP PO DAILY for 30 Days, #30 CAP 0 Refills 10/19/24 Aspirin (Aspirin EC) 81 Mg Tablet.dr, 1 TAB PO DAILY for 30 Days, #30 TAB 0 Refills 10/19/24 Atorvastatin Calcium (Atorvastatin Calcium) 20 Mg Tablet, 1 TAB PO HS 11/30/23 Past Medical History Past Medical History: Diabetes-Type II, High Cholesterol, Kidney Stone, Prostatitis, Renal Disese, UTI Medical History Other: PROSTATE, ESBL, FAMILY POOR HISTORIAN Past Surgical History: Appendectomy Surgical History Other: KIDNEY STONES, NEPHROSTOMY TUBE, 11/2024 UNKNOWN PROCEDURE WITH CEM Family History Family History: Negative Social History Social History: Negative, Lives with family, Other ROS Dictation CONSTITUTIONAL: No chills, no fever, no weakness, no diaphoresis, no malaise. HEAD/FACE: No signs of trauma. EENT: No eye pain, no blurred vision, no tearing, no double vision, no ear pain, no ear discharge, no nose pain, no nasal congestion, no throat pain, no throat swelling, no mouth pain. RESPIRATORY: No cough, no orthopnea, no SOB, no stridor, no wheezing. CARDIOVASCULAR: No chest pain, no edema, no palpitations, no syncope. GASTROINTESTINAL/ABDOMINAL: No abdominal pain, no constipation, no diarrhea, no nausea, no vomiting. GENITOURINARY: No abnormal discharge, no dysuria, no frequent urination, no hematuria. complaints of pain in the genitals. MUSCULOSKELETAL: No back pain, no gout, no joint pain, no joint swelling, no muscle pain, no muscle stiffness, no neck pain. INTEGUMENTARY: No change in color, no change in hair/nails, no dryness, no lesion, no lumps, no rash. NEUROLOGICAL/PSYCH: No anxiety, not depressed, no emotional problem, no headache, no numbness, no pre-existing deficit, no history of seizures, no tremors, no weakness. HEMATOLOGIC/LYMPHATIC: Not anemic, no history of blood clots, no apparent bl eeding, no bruising, glands not swollen. All Systems Negative, Except as Noted. Physical Exam Physical Exam Dictation VITAL SIGNS: Reviewed. GENERAL APPEARANCE: Alert, oriented x3, no acute distress, obese. HEAD AND FACE: Non-traumatic. EYES: PERRL, pink conjunctivas, eyelid no trauma, anterior chamber clear. EARS: Pinnas intact and no signs of trauma or erythema. Ear canals clear and no discharge. TMs no erythema. NOSE: No discharge, no bleeding. OROPHARYNX: Mouth normal, teeth no caries, tongue pink. Pharynx clear, no erythema. Tonsils no exudates, no abscesses noted. Mucous membrane moist. NECK: Supple, non-tender, no thyromegaly, no masses, no JVD, no bruits. BREAST: Deferred. CHEST: No tenderness, no crepitus, no paradoxical movement, no retractions. LUNGS: Clear, well-ventilated, symmetric, no rales, no wheezing, no rhonchi, no stridor, good breath sounds bilaterally. HEART: Regular rate, regular rhythm, no murmur, no gallops. VASCULAR: No peripheral edema. ABDOMEN: Soft, positive bowel sounds, nondistended, no guarding, nontender, no rebound, no masses no hepatomegaly, no splenomegaly, no Chavarria's sign, no hernias. RECTAL: Deferred. GENITAL: Deferred. NEUROLOGICAL: Normal speech, gross motor function intact, gross sensory function intact. MUSCULOSKELETAL: Neck nontender, full range of motion, back nontender, full ran ge of motion. EXTREMITIES: Nontender, full range of motion. SKIN: Color pink, dry, no turgor, no rash, no lacerations, no abrasions, no contusions. LYMPHATICS: Deferred. Results Laboratory and Microbiology Labs Reviewed?: Yes MDM MDM: Differential diagnosis: Anuria, dysuria, status post lithotripsy Rationale: Tests considered and ordered secondary to shared decision making include: Previous outside records reviewed: Old ER visits. Risk of complication and/or morbidity or mortality of patient management: None Medications-Per medication reconciliation Need for hospitalization: Patient does not meet criteria for hospitalization. This is a 79-year-old male coming in with an area. He states he has a history of BPH and recently got lithotripsy. He states he is not able to urinate this has been further evaluation. Upon evaluation bladder fully distended Pro catheter was placed 200 mL of urine were put out patient states he feels much better he will be discharged stable condition with a diagnosis anuria relieved with Pro catheter ED Course Orders Procedure Category Date Status Time Ketorolac PHA 11/30/24 Complete Tromethamine 30mg/Ml 07:30 Current Medications Medications (Trade) Dose Ordered Sig/Akhil Route PRN Reason Start Time Stop Time Status Last Admin Dose Admin Ketorolac Tromethamine (toRADol) 30 mg ONCE ONCE IM 11/30/24 07:30 11/30/24 07:31 DC 11/30/24 07:33 Vital Signs Date Time Temp Pulse Resp B/P (MAP) Pulse Ox O2 Delivery O2 Flow Rate FiO2 11/30/24 06:54 98.6 95 19 145/76 97 Room Air DX & DISP Disposition: Discharge Decision to Admit Time: 07:41 Departure Impression: Primary Impression: Urinary retention with incomplete bladder emptying 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 TAKE MEDICATIONS DIRECTED HERE IN THE EMERGENCY ROOM. OKAY TO CONTINUE HOME MEDICATIONS UNLESS OTHERWISE DISCUSSED DURING YOUR VISIT IN THE EMERGENCY ROOM TODAY. RETURN TO YOUR NEAREST EMERGENCY ROOM IF SYMPTOMS WORSEN OR IF THERE IS NO IMPROVEMENT. CALL 911 IF YOU NEED IMMEDIATE ASSISTANCE. TAKE TYLENOL [id number] NEEDED AND IF NO CONTRAINDICATIONS ARE PRESENT. INCREASE ORAL HYDRATION. A WOUND CULTURE OR URINE CULTURE WAS ORDERED HERE IN THE EMERGENCY ROOM DEPARTMENT PLEASE FOLLOW-UP WITH PRIMARY CARE PROVIDER AND ADVISE THEM TO GET REPORTS FROM OUR FACILITY. IF YOU HAD ANY AJAY WRAP/SPLINTS THAT WERE APPLIED HERE, PLEASE DO NOT REMOVE THEM UNTIL YOU SEE YOUR PRIMARY CARE OR SPECIALTY. Referrals: Referrals: MODESTO RAMIREZ MD (PCP) KULDEEP BATISTA MD Time of Disposition: 07:39 VANESSA APPLE MD Nov 30, 2024 07:16
[2024-11-30] MEDS ORDERED: FOSF3PAC4 PO (07:41)
[2024-11-30 08:18] VITALS: BP 131/78; PULSE 78; RESP 14; TEMP 97.6; O2SAT 96
== END 2024-11-30 08:23 | disposition home or self-care (01) ==
LOC: EDH 06:52
DX: R33.9 Retention of urine, unspecified (principal); E11.9 Type 2 diabetes mellitus without complications; E78.00 Pure hypercholesterolemia, unspecified; Z79.82 Long term (current) use of aspirin; Z88.0 Allergy status to penicillin; Z90.49 Acquired absence of other specified parts of digestive tract; Z79.899 Other long term (current) drug therapy
CPT/HCPCS: 99283; 96372; J1885